=== PATIENT | female | born 1960 | race American Indian/Alaskan Native ===

== ENCOUNTER 2022-02-16 15:34 | Emergency (ER) | payer MEDICARE ==
[2022-02-16 15:53] VITALS: BP 108/64
--- NOTE | 2022-02-16 16:18 | Event Note ---
ED Screening Note ED Screening Note: 8-6 ate a taco and since then has had n/v/d; also cp/sob went to urgent care today on [address] dizziness bp and oxygen low so they called 911 and sent her here [facility] OR in past copd md/anxiety htn hld lowk low vit d rx norvasc meclizine- does not know why heart pill "RA?" depression pill clonazepam trazadone ambien pt is immunized for covid PSH stomach surgery to stop her gerd -hysterectomy bladder tuck r shoulder surgery b knee surgery nok kaz elliott, son [phone] pcp - not on this side of town This initial assessment/diagnostic orders/clinical plan/treatment(s) is/are subject to change based on patients health status, clinical progression and re- assessment by fellow clinical providers in the ED. Further treatment and workup at subsequent clinical providers discretion. Patient/guardian urged not to elope from the ED as their condition may be serious if not clinically assessed and managed. Initial orders include: 12lead labs [facility] orthostatics
[2022-02-16] MEDS ORDERED: SODIUM CHLORIDE 0.9% 1000 ML 1,000 ML IV ONE (16:28)
[2022-02-16 16:31] LABS: Basophils # (Auto) 0.1 K/mm3 (0.0-0.1); Basophils % (Auto) 0.8 % (0.0-1.8); Eosinophils # (Auto) 0.2 K/mm3 (0.0-0.4); Eosinophils % (Auto) 2.8 % (0.0-4.3); Hematocrit 36.9 % (30.3-42.9); Hemoglobin 12.3 gm/dl (10.1-14.3); Lymphocytes % (Auto) 38.1 % (13.4-35.0); Mean Corpuscular HGB Conc 33 % (30-34); Mean Corpuscular Volume 86 fl (79-97); Monocytes # (Auto) 0.4 K/mm3 (0.0-0.8); Monocytes % (Auto) 5.3 % (0.0-7.3); Platelet Count 446 K/mm3 (140-440); Red Cell Distribution Width 14.5 % (13.2-15.2)
[2022-02-16 16:45] LABS: Albumin 3.6 g/dL (3.9-5); Blood Urea Nitrogen 10 mg/dL (7-17); Hemolysis Index 44
[2022-02-16 16:49] LABS: Alanine Aminotransferase < 5 units/L (7-56); BUN/Creatinine Ratio 17
[2022-02-16] MEDS ORDERED: methylPREDNISolone Sod Succinate 125 MG/2 ML INJ IM ONE (17:24)
[2022-02-16] MEDS ORDERED: IPRATROPIUM/ALBUTEROL SULFATE 3 ML AMPUL.NEB IH ONE (17:24)
[2022-02-16] MEDS ORDERED: ACETAMINOPHEN W/CODEINE 300-30 MG TAB PO ONE (17:24)
[2022-02-16] MEDS ORDERED: BENZONATATE 100 MG CAP PO ONE (17:24)
--- NOTE | 2022-02-16 17:41 | XRay Report ---
CHEST 2 VIEWS INDICATION / CLINICAL INFORMATION: SOB. COMPARISON: None available. FINDINGS: SUPPORT DEVICES: None. HEART / MEDIASTINUM: No significant abnormality. LUNGS / PLEURA: Diffuse interstitial prominence. ADDITIONAL FINDINGS: No significant additional findings. IMPRESSION: 1. Diffuse interstitial prominence which may suggest acute or chronic interstitial lung disease. Signer Name: Dre Smith MD Signed: 02/16/2022 5:37 PM Workstation Name: [id number]
--- NOTE | 2022-02-16 18:47 | Emergency Department Report ---
ED Abdominal Pain HPI - General Chief Complaint: Nausea/Vomiting/Diarrhea Stated Complaint: LOW BLOOD PRESSURE Time Seen by Provider: 02/16/22 17:23 Source: patient, EMS Mode of arrival: Stretcher Limitations: No Limitations - History of Present Illness Initial Comments: 61-year-old black female with a past medical history of hypertension, hyperlipidemia, COPD, vitamin D deficiency, and ACS status post ID several years ago presents to the emergency department for evaluation of chest tightness and shortness of breath. She states that her symptoms started 2 weeks ago on a Sunday after she ate a taco. She states that after eating a taco she devel oped severe nausea vomiting and diarrhea along with intermittent abdominal pain and cramping. She states that diarrhea has much improved and nausea and vomiting has mostly resolved but a few days ago, she developed tightness in her chest along with shortness of breath and has had a persistent cough. She denies fever. MD Complaint: abdominal pain, other (Chest pain and shortness of breath) -: Gradual, week(s) (2) Location: diffuse Radiation: none Migration to: no migration Severity: mild, moderate Severity scale (0 -10): 6 Quality: cramping, aching Consistency: intermittent Associated Symptoms: nausea, vomiting, diarrhea. denies: fever, chills, dysuria, hematemesis, hematochezia, melena, hematuria, anorexia, syncope - Related Data Previous Rx's Medication Instructions Recorded Last Taken Type Albuterol Mdi (or & Nicu Only) 2 puff IH QID PRN #8.5 gram 02/16/22 Unknown Rx [ProAir HFA Inhaler] Benzonatate [Tessalon Perles] 100 mg PO Q8HR PRN #30 cap 02/16/22 Unknown Rx Prednisone [predniSONE 10 mg 10 mg PO .TAPER #1 pack 02/16/22 Unknown Rx (6-Day Pack, 21 Tabs)] guaiFENesin/CODEINE [Robitussin AC] 10 ml PO TID PRN #120 ml 02/16/22 Unknown Rx Allergies Allergy/AdvReac Type Severity Reaction Status Date / Time Sulfa (Sulfonamide Allergy Unknown Verified 02/16/22 15:54 Antibiotics) ED Review of Systems ROS: Stated complaint: LOW BLOOD PRESSURE Other details as noted in HPI Comment: All other systems reviewed and negative Constitutional: denies: chills, fever, malaise, weakness ENT: congestion Respiratory: cough, shortness of breath, wheezing. denies: SOB with exertion, SOB at rest, stridor Cardiovascular: chest pain. denies: palpitations, dyspnea on exertion, orthopnea, edema, syncope, paroxysmal nocturnal dyspnea Gastrointestinal: abdominal pain, nausea, vomiting, diarrhea. denies: hematemesis, melena, hematochezia Genitourinary: denies: urgency, dysuria, frequency, hematuria, discharge, abn ormal menses, dyspareunia Musculoskeletal: denies: back pain Neurological: denies: headache, weakness ED Past Medical Hx - Medications Home Medications: Home Medications Medication Instructions Recorded Confirmed Last Taken Type Albuterol Mdi (or & Nicu Only) 2 puff IH QID PRN #8.5 gram 02/16/22 Unknown Rx [ProAir HFA Inhaler] Benzonatate [Tessalon Perles] 100 mg PO Q8HR PRN #30 cap 02/16/22 Unknown Rx Prednisone [predniSONE 10 mg 10 mg PO .TAPER #1 pack 02/16/22 Unknown Rx (6-Day Pack, 21 Tabs)] guaiFENesin/CODEINE [Robitussin AC] 10 ml PO TID PRN #120 ml 02/16/22 Unknown Rx ED Physical Exam - General Limitations: No Limitations General appearance: alert, in no apparent distress - Head Head exam: Present: atraumatic, normocephalic - Eye Eye exam: Present: normal appearance. Absent: conjunctival injection, periorbital swelling, periorbital tenderness - ENT ENT exam: Present: normal exam - Neck Neck exam: Present: normal inspection, full ROM. Absent: tenderness, lymphadenopathy - Respiratory Respiratory exam: Present: wheezes, chest wall tenderness. Absent: respiratory distress, rales, rhonchi, stridor, accessory muscle use - Cardiovascular Cardiovascular Exam: Present: regular rate, normal heart sounds - GI/Abdominal GI/Abdominal exam: Present: soft, normal bowel sounds. Absent: distended, tenderness, guarding, rebound, rigid - Extremities Exam Extremities exam: Present: normal inspection, normal capillary refill. Absent: full ROM, tenderness, pedal edema, joint swelling, calf tenderness - Back Exam Back exam: Present: normal inspection. Absent: CVA tenderness (R), CVA te nderness (L), vertebral tenderness - Neurological Exam Neurological exam: Present: alert, oriented X3, normal gait - Psychiatric Psychiatric exam: Present: normal affect, normal mood - Skin Skin exam: Present: warm, dry, intact, normal color ED Course Vital Signs 02/16/22 02/16/22 15:34 17:50 Temperature 98.4 F Pulse Rate 74 Pulse Rate [ 75 Anterior Bilateral Throughout] Pulse Rate [ 76 Posterior Bilateral Throughout] Respiratory 16 Rate Respiratory 16 Rate [Anterior Bilateral Throughout] Respiratory 16 Rate [Posterior Bilateral Throughout] Blood Pressure 108/64 [Left] O2 Sat by Pulse 95 Oximetry - Reevaluation(s) Reevaluation #1: 02/16/22 18:20 Chest tightness, shortness of breath, and wheezing resolved after DuoNeb treatment. Patient states that she feels much better. ED Medical Decision Making - Lab Data Result diagrams: 02/16/22 16:14 02/16/22 16:14 - EKG Data EKG shows normal: sinus rhythm Rate: normal - EKG Data Interpretation: no acute changes - Radiology Data Radiology results: report reviewed, image reviewed Chest x-ray: FINDINGS: SUPPORT DEVICES: None. HEART / MEDIASTINUM: No significant abnormality. LUNGS / PLEURA: Diffuse interstitial prominence. ADDITIONAL FINDINGS: No significant additional findings. IMPRESSION: 1. Diffuse interstitial prominence which may suggest acute or chronic interstitial lung disease. - Medical Decision Making 61-year-old black female with a past medical history of hypertension, hyperlipidemia, COPD, vitamin D deficiency, and ACS status post ID several years ago presents to the emergency department for evaluation of chest tightness and shortness of breath. She states that her symptoms started 2 weeks ago on a Sunday after she ate a taco. She states that after eating a taco she developed severe nausea vomiting and diarrhea along with intermittent abdominal pain and cramping. She states that diarrhea has much improved and nausea and vomiting has mostly resolved but a few days ago, she developed tightness in her chest along with shortness of breath and has had a persistent cough. She denies fever. Chest x-ray without any acute abnormalities noted. EKG without any acute ischemic changes noted and troponin within normal limits. Symptoms resolved after DuoNeb treatment. Patient will be discharged home with steroid Dosepak, Tessalon Perles, Robitussin-AC, and albuterol inhaler. She is advised to follow-up with her primary care provider or pulmonology for further evaluation and management. She is advised to return to the emergency department as needed. She verbalizes understanding of and agreement with plan of care. Critical care attestation.: If time is entered above; I have spent that time in minutes in the direct care of this critically ill patient, excluding procedure time. ED Disposition Clinical Impression: Asthma exacerbation Qualifiers: Asthma severity: mild Asthma persistence: persistent Qualified Code(s): J45.31 - Mild persistent asthma with (acute) exacerbation Disposition: 01 HOME / SELF CARE / HOMELESS Is pt being admited?: No Does the pt Need Aspirin: No Condition: Stable Instructions: Cough, Adult, [id number], Asthma, Adult, [id number], Asthma Attack Prevention, Adult Additional Instructions: Take medications as prescribed. Follow-up with your primary care provider if no improvement or worsening symptoms. Return to the emergency department as needed. Prescriptions: Prednisone [predniSONE 10 mg (6-Day Pack, 21 Tabs)] 10 mg PO .TAPER #1 pack Albuterol Mdi (or & Nicu Only) [ProAir HFA Inhaler] 2 puff IH QID PRN #8.5 gram PRN Reason: Shortness Of Breath guaiFENesin/CODEINE [Robitussin AC] 10 ml PO TID PRN #120 ml PRN Reason: Cough Benzonatate [Tessalon Perles] 100 mg PO Q8HR PRN #30 cap PRN Reason: Cough Referrals: JAILYN JAUREGUI MD [Staff Physician] - 3-5 Days SANDRA GUNDERSON MD [Staff Physician] - 3-5 Days Forms: Work/School Release Form(ED) Time of Disposition: 18:46 ED Chest Pain HPI - General Chief Complaint: Nausea/Vomiting/Diarrhea Stated Complaint: LOW BLOOD PRESSURE Time Seen by Provider: 02/16/22 17:23 Source: patient - History of Present Illness Timing/Duration: other (2-3 days) Severity/Quality: moderate Location: substernal Chest Pain Radiation: no radiation Activities at Onset: rest Prior Chest Pain/Cardiac Workup: heart attack Nitro Today/Relief: no nitro taken today Aspirin Treatment Today: no aspirin today Associated Symptoms: abdominal pain, nausea/vomiting, shortness of breath. denies: back pain, diaphoresis, dizziness, edema, fatigue, fever/chills, headache, heartburn, rash, swelling/lump in chest, syncope, weakness Allergies/Adverse Reactions: Allergies Sulfa (Sulfonamide Antibiotics) Allergy (Verified 02/16/22 15:54) Unknown Home Medications: Ambulatory Orders Albuterol Mdi (or & Nicu Only) [ProAir HFA Inhaler] 2 puff IH QID PRN #8.5 gram 02/16/22 Benzonatate [Tessalon Perles] 100 mg PO Q8HR PRN #30 cap 02/16/22 Prednisone [predniSONE 10 mg (6-Day Pack, 21 Tabs)] 10 mg PO .TAPER #1 pack 02/16/22 guaiFENesin/CODEINE [Robitussin AC] 10 ml PO TID PRN #120 ml 02/16/22
--- NOTE | 2022-02-17 22:36 | Electrocardiograph Report ---
[facility] Test Date: 2022-02-16 Test Time: 16:23:36 Pat Name: LESTER OMALLEY Department: Room: Gender: F Resident Care Assistant: SHERINE : 1960 Requested By: SARAH MULLIGAN Order Number: [id number] Reading MD: Ciro Lynn Measurements Intervals [place] Rate: 77 P: 76 SC: 175 QRS: -22 QRSD: 90 T: 59 QT: 424 QTc: 480 Interpretive Statements Sinus rhythm Probable left atrial enlargement No previous ECG available for comparison Electronically Signed On 02-17-2022 22:36:06 EDT by Ciro Lynn
== END 2022-02-16 19:00 | disposition home or self-care (01) ==
LOC: ED 15:34
DX: J45.901 Unspecified asthma with (acute) exacerbation (principal)
CPT/HCPCS: 36415; 71046; 80053; 83690; 83735; 84100; 84484; 85025; 93005; 94640; 96360; 96372; 99284; J2930; J7030; 94644